=== PATIENT | female | born 1965 | race Caucasian/White ===

== ENCOUNTER 2022-09-23 00:23 | Emergency (ER) | payer MEDICAID ==
[~2022-09-23] VITALS: Ht 170.2 cm; Wt 102.1 kg
[2022-09-23 00:27] VITALS: BP_SYST 139
[2022-09-23] MEDS ORDERED: DIPHTH,PERTUSS(ACELL),TET VAC 0.5 ML VIAL (Tdap) I.M. ONE (00:30)
[2022-09-23] MEDS ORDERED: LIDOCAINE 1% 10 MG/ML, 20 ML MDV INJ ONE (00:30)
[2022-09-23] MEDS ORDERED: BACITRACIN 1 GM OINT TP ONE (00:30)
--- NOTE | 2022-09-23 00:35 | NUR ---
Patient triaged and placed in ED RM 4 for examination. MD Gusman notified of need for MSE. Bleeding controlled to affected site.
--- NOTE | 2022-09-23 00:38 | NUR ---
ER Dr. Gusman at bedside examining patient.
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
[2022-09-23] MEDS ORDERED: NAPR-690 PO (01:21)
[2022-09-23] MEDS ORDERED: CEPH-548 PO (01:21)
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
--- NOTE | 2022-09-23 01:27 | NUR ---
Copy of TDAP forms given to patient.
[2022-09-23 01:34] VITALS: BP_SYST 134
--- NOTE | 2022-09-23 01:35 | NUR ---
Patient given written and verbal discharge instructions and verbalizes understanding. ER MD discussed with patient the results and treatment provided. Patient in stable condition. ID arm band removed. Patient to return for wound check in a few days. Rx of keflex and naproxen given. Patient educated on pain management and to follow up with PMD. Opportunity for questions provided and answered. Medication side effect fact sheet provided.
== END 2022-09-23 01:34 | disposition home or self-care (01) ==
LOC: SED 00:23
DX: S91.312A Laceration without foreign body, left foot, initial encounter (principal); Z79.899 Other long term (current) drug therapy; X58.XXXA Exposure to other specified factors, initial encounter; Y93.89 Activity, other specified; Y92.89 Other specified places as the place of occurrence of the external cause; Y99.8 Other external cause status
CPT/HCPCS: 99283; 90715; 90471; 12004; J2001

== ENCOUNTER 2022-09-25 17:13 | Emergency (ER) | payer MEDICAID ==
[~2022-09-25 17:13] MED LIST: CEPH-548 PO; NAPR-690 PO
[2022-09-25 18:01] VITALS: BP_SYST 144
--- NOTE | 2022-09-25 18:01 | NUR ---
DR HOLLIS IN [facility] FOR EXAM
--- NOTE | 2022-09-25 18:22 | NUR ---
Patient given written and verbal discharge instructions and verbalizes understanding. ER MD discussed with patient the results and treatment provided. Patient in stable condition. ID arm band removed. Patient educated on pain management and to follow up with PMD. Pain Scale . Opportunity for questions provided and answered.
[2022-09-25 18:26] VITALS: BP_SYST 144
== END 2022-09-25 18:26 | disposition home or self-care (01) ==
LOC: SED 17:13
DX: Z48.00 Encounter for change or removal of nonsurgical wound dressing (principal); Z79.899 Other long term (current) drug therapy
CPT/HCPCS: 99281

== ENCOUNTER 2022-10-03 16:29 | Emergency (ER) | payer MEDICAID ==
[~2022-10-03] VITALS: Ht 165.1 cm; Wt 97.5 kg
[2022-10-03 16:35] VITALS: BP_SYST 147
--- NOTE | 2022-10-03 16:35 | NUR ---
BROUGHT INTO BED IN [facility]ALLWAY AND TRIAGED. REPORT GIVEN TO TIARRA
--- NOTE | 2022-10-03 17:20 | NUR ---
ER at bedside examining patient.
--- NOTE | 2022-10-03 17:25 | NUR ---
Pt presents to the ER for suture removal 13 sutures located posterior ankle with pinkness distal portion of heel from ankle. Pt denies fever, pt denies numbness, capillary return less than 3 seconds.
[2022-10-03] MEDS ORDERED: BACITRACIN 1 GM OINT TP ONE (17:30)
[2022-10-03] MEDS ORDERED: BACI15OI13 TP (17:31)
--- NOTE | 2022-10-03 18:14 | NUR ---
Patient given written and verbal discharge instructions and verbalizes understanding. ER MD discussed with patient the results and treatment provided. Patient in stable condition. ID arm band removed. Patient educated on pain management and to follow up with PMD. Opportunity for questions provided and answered. Medication side effect fact sheet provided.
[2022-10-03 18:32] VITALS: BP_SYST 147
== END 2022-10-03 18:32 | disposition home or self-care (01) ==
LOC: SED 16:29
DX: Z48.02 Encounter for removal of sutures (principal)
CPT/HCPCS: 99282